=== PATIENT | female | born 1975 | race Caucasian/White ===

== ENCOUNTER 2025-05-19 23:32 | Emergency (ER) | payer OTHER ==
[2025-05-20 00:16] LABS: #Basophils 0.04 10x3/uL (0.0-0.2); #Eosinophils Less than 0.03 10x3/uL (0.0-0.5); #Monocytes 0.54 10x3/uL (0.0-1.1); #Neutrophils 3.90 10x3/uL (1.5-8.4); %Basophils 0.7 % (0.0-2.0); %Eosinophils 0.0 % (0.0-6.0); %Lymphocytes 22.5 % (18.0-47.0); %Monocytes 9.3 % (0.0-10.0); %Neutrophils 67.2 % (40.0-75.0); Hematocrit 31.8 % (34.9-44.5); Hemoglobin 10.2 g/dL (12.0-15.5); Mean Corpuscular Hemoglobin 28.5 pg (27.0-33.0); Mean Corpuscular Volume 88.8 fL (81.6-98.3); Platelet Count 187 10x3/uL (150-450); Red Blood Cell (RBC) Count 3.58 10x6/uL (3.90-5.03); White Blood Cell (WBC) Count 5.81 10x3/uL (3.5-10.5)
[2025-05-20 00:36] LABS: ALT (SGPT) 20 U/L (Less than 34); AST (SGOT) 37 U/L (11-34); Albumin 3.2 g/dL (3.1-4.5); Alkaline Phosphatase 70 U/L (40-110); Anion Gap 14 mmol/L (10-20); BUN (Urea Nitrogen) 16 mg/dL (7.0-18.7); Bilirubin, Total 0.1 mg/dL (0.3-1.2); Calc. Creatinine Clearance 0 mL/min (70-130); Calcium 8.1 mg/dL (7.8-10.44); Carbon Dioxide 20 mmol/L (22-29); Chloride 103 mmol/L (98-107); Globulin 2.7 g/dL (2.4-3.5); Glucose 102 mg/dL (70-105); Magnesium 1.7 mg/dL (1.6-2.6); Potassium 3.8 mmol/L (3.5-5.1); Sodium 133 mmol/L (136-145)
== END 2025-05-20 02:07 | disposition home or self-care (01) ==
LOC: CSHERS 23:32
DX: R56.9 Unspecified convulsions (principal); Z79.899 Other long term (current) drug therapy
CPT/HCPCS: 36415; 80053; 80177; 83735; 85025; 93005; 99284